=== PATIENT | female | born 1960 | race Caucasian/White ===

== ENCOUNTER 2018-09-23 18:55 | Emergency (ER) | payer BC ==
--- NOTE | 2018-09-23 19:13 | Emergency Department Record ---
History of Present Illness - General Chief complaint: Pain Stated complaint: RT ARM PAIN/HEAD PAIN Time Seen by Provider: 09/23/18 19:10 Source: Patient Mode of Arrival: Ambulatory Limitations: No limitations - History of Present Illness Initial comments: 57 yo female presents to ED for evaluation of nonspecific ache and pain symptoms to the right upper extremity and right side of the neck. Patient reports that she was seen for her symptoms at [facility] yesterday, told she may have a pinched nerve. Patient reports that development of a blistering rash to the right upper arm today, was concerned about shingles. Patient denies health problems at her baseline other than history of gastric bypass. Patient has been taking Naproxsyn that has not improved her symptoms significantly. MD Complaint: Extremity pain Onset/Timin -: Days(s) Location: Right, Shoulder History of Same: No Radiation: Distal Severity scale (1-10): 6 Quality: Other Consistency: Constant, Getting worse Improves with: Nothing Worsens with: Other Associated Symptoms: Denies other symptoms - Related Data Home Medications Medication Instructions Recorded Confirmed Last Taken Multivitamin [Multiple Vitamins] 1 each PO DAILY 09/23/18 09/23/18 09/23/18 Previous Rx's Medication Instructions Recorded Acyclovir 800 mg PO 5XD #50 tablet 09/23/18 Hydrocodone/Acetaminophen [Gary 1 each PO Q6H PRN #10 tablet 09/23/18 5-325 Tablet] Allergies Allergy/AdvReac Type Severity Reaction Status Date / Time No Known Drug Allergies Allergy Verified 09/23/18 19:10 Travel Screening - Travel/Exposure Within Last 30 Days Have you traveled within the last 30 days?: No - Travel Symptoms Symptom Screening: None Review of Systems Constitutional: Denies: Chills, Fever, Malaise, Night sweats Eyes: Denies: Eye discharge, Eye pain ENT: Denies: Congestion, Ear pain, Epistaxis Respiratory: Denies: Cough, Dyspnea Cardiovascular: Denies: Chest pain, Dyspnea on exertion Endocrine: Denies: Fatigue, Heat or cold intolerance Gastrointestinal: Denies: Abdominal pain, Nausea, Vomiting Genitourinary: Denies: Incontinence, Retention Musculoskeletal: Reports: Myalgia, Neck pain. Denies: Arthralgia, Back pain Skin: Reports: Rash. Denies: Bruising, Change in color Neurological: Denies: Abnormal gait, Confusion, Headache, Tingling, Tremors Psychiatric: Denies: Anxiety Hematological/Lymphatic: Denies: Anemia, Blood Clots Past Medical History - SOCIAL HISTORY Smoking Status: Never smoker Alcohol Use: None Drug Use: None - RESPIRATORY Hx Respiratory Disorders: No - CARDIOVASCULAR Hx Cardio Disorders: No - NEURO Hx Neuro Disorders: No - GI Hx GI Disorders: No - Hx Genitourinary Disorders: No - ENDOCRINE Hx Endocrine Disorders: No - MUSCULOSKELETAL Hx Musculoskeletal Disorders: No - PSYCH Hx Psych Problems: No - HEMATOLOGY/ONCOLOGY Hx Hematology/Oncology Disorders: No Family Medical History Any Significant Family History?: No Physical Exam - General General Appearance: Alert, Oriented x3, Cooperative, Mild distress Limitations: No limitations - Head Head exam: Atraumatic, Normocephalic, Normal inspection Head exam detail: negative: Abrasion, Contusion, Enrique's sign, General tenderness, Hematoma, Laceration - Eye Eye exam: Normal appearance. negative: Conjunctival injection, Periorbital swelling, Periorbital tenderness, Scleral icterus - ENT Ear exam: negative: Auricular hematoma, Auricular trauma Nasal Exam: negative: Active bleeding, Discharge, Dried blood Mouth exam: negative: Drooling, Laceration, Muffled voice, Tongue elevation - Neck Neck exam: Normal inspection. negative: Meningismus, Tenderness - Respiratory Respiratory exam: Normal lung sounds bilaterally. negative: Respiratory distress, Rhonchi, Stridor, Wheezes - Cardiovascular Cardiovascular Exam: Regular rate, Normal rhythm, Normal heart sounds - GI/Abdominal GI/Abdominal exam: Soft. negative: Rebound, Rigid, Tenderness - Rectal Rectal exam: Deferred - exam: Deferred - Extremities Extremities exam: Other (Vesicular rash to the right C5 dermatome on examination). negative: Calf tenderness, Pedal edema, Tenderness - Back Back exam: Denies: CVA tenderness (R), CVA tenderness (L) - Neurological Neurological exam: Alert, Normal gait, Oriented X3 - Psychiatric Psychiatric exam: Normal affect, Normal mood - Skin Skin exam: Rash. negative: Abrasion Type of lesion: Rash Distribution of rash: RUE Description of rash: Vesicular Course Vital Signs 09/23/18 19:02 Temperature 98.3 F Pulse Rate [ 79 Pulse Ox Probe] Respiratory 20 Rate Blood Pressure 116/81 [Left Arm] Pulse Ox 95 - Reevaluation(s) Reevaluation #1: 09/23/18 19:20 Patient was seen and examined Examination appears c/w herpes zoster involving the right C5 Dermatome Will prescribe Acyclovir and Gary as needed for her pain symptoms as the patient is not supposed to take NSAIDs s/p gastric bypass surgery. Patient appears stable for discharge at this time. Disposition Disposition: Discharge Clinical Impression: Shingles rash Qualifiers: Herpes zoster complications: without complications Qualified Code(s): B02.9 - Zoster without complications Disposition: Home, Self-Care Condition: (2) Stable Instructions: Shingles (ED) Additional Instructions: Return to ED if your symptoms worsen or if you have any concerns. Acyclovir and Gary as directed. Follow-up with your family doctor in 3-5 days as directed. Prescriptions: Acyclovir 800 mg PO 5XD #50 tablet Hydrocodone/Acetaminophen [Gary 5-325 Tablet] 1 each PO Q6H PRN #10 tablet PRN Reason: Pain - Mod To Severe (5-10) Forms: Patient Portal Access Time of Disposition: 19:13 Quality - Quality Measures Quality Measures: N/A - Blood Pressure Screening Does Patient Have Any of the Following: No Blood Pressure Classification: Pre-Hypertensive BP Reading Systolic Measurement: 116 Diastolic Measurement: 81 Screening for High Blood Pressure: < Pre-Hypertensive BP, F/U Documented > [[id number]] Pre-Hypertensive Follow-up Interventions: Referral to alternative/primary care provider.
== END 2018-09-23 19:25 | disposition home or self-care (01) ==
LOC: ER 18:55
DX: B02.9 Zoster without complications (principal)
CPT/HCPCS: 99283